=== PATIENT | female | born 1970 | race American Indian/Alaskan Native ===

== ENCOUNTER 2024-03-28 15:12 | Emergency (ER) | payer MEDICARE, MEDICAID ==
[2024-03-28] MEDS: Lidocaine 2% 20 ML MDV INFILT ONE (15:54)
[2024-03-28] MEDS: Bacitracin Oint 1 GM U/D Packet TOP ONE (16:55)
== END 2024-03-28 17:16 | disposition home or self-care (01) ==
LOC: DL.ED 15:12
DX: L60.0 Ingrowing nail (principal); B35.3 Tinea pedis; Z88.0 Allergy status to penicillin
CPT/HCPCS: 11740; 99283; A9270; J3490

== ENCOUNTER 2024-04-04 15:00 | Emergency (ER) | payer MEDICARE, MEDICAID | END 2024-04-04 15:35 | disposition home or self-care (01) | LOC: DL.ED 15:00 | DX: L03.032 Cellulitis of left toe (principal); L60.0 Ingrowing nail; I10 Essential (primary) hypertension; J45.909 Unspecified asthma, uncomplicated; Z88.0 Allergy status to penicillin | CPT/HCPCS: 99283 ==